=== PATIENT | female | born 1955 | race Caucasian/White ===

== ENCOUNTER 2016-08-12 14:29 | Emergency (ER) | payer OTHER ==
--- NOTE | 2016-08-12 14:58 | ED NURSING NOTES ---
Clinical Report - Nurses [facility] [place] [address] 08/12/2016 14:37 Patient: ELDER GUERRERO TRIAGE Triage time 14:37 Aug 12 2016. Acuity: LEVEL 2. Chief Complaint: ALTERED MENTAL STATUS and (expressive aphasia). 14:41 08/12/16. ( weight deferred until ct completed). --14:41 Winnie Schneider R.N. 14:41 08/12/16. BP: 173/80. HR: 79. RR: 18. O2 saturation: 95%. --14:41 Winnie Schneider R.N. SANG COMA SCORE: Sang Coma Scale: 10- eyes open spontaneously (4); best verbal response- none (1); best motor response- localizes to pain (5). --14:56 Winnie Schneider R.N. Weight: 72.8 kg. Height/Length: 66 inches. BMI: 25.9. --14:37 Winnie Schneider R.N. Medications None. --14:54 Winnie Schneider R.N. Allergies No Known Drug Allergy. --14:54 Winnie Schneider R.N. (old records). --14:41 Winnie Schneider R.N. History Arrived by EMS. This started 36 hours ago. Patient was last known well (36 hours ago). She has had trouble walking. ( has not been able to talk for 36 hours, unable to walk). --14:41 Winnie Schneider R.N. SOCIAL HX: Heavy tobacco smoker (cigarette)- 1 pack per day. Regular alcohol use; consumes two liquor and wine. History of drug use: marijuana. No infectious disease exposure. ABUSE ASSESSMENT: No report of abuse. --14:56 Winnie Schneider R.N. PROBLEMS: no known problems. ADDITIONAL SURGERIES: no known surgeries. Interventions ID band on patient. --14:41 Winnie Schneider R.N. PHYSICAL ASSESSMENT 14:58 08/12/16. To room via stretcher. ( unable to complete nihss, patient unable to follow verbal instructions). GENERAL / NEURO / PSYCH: Alert. Not responding verbally. Patient appears well-nourished. Pupillary exam: Right pupil 4mm. Left pupil: 4mm. RESPIRATORY: Breath sounds within normal limits. CVS: Normal sinus rhythm noted. Cardiac rhythm: normal sinus rhythm. Capillary refill less than 2 seconds. GI / : Abdomen soft and nontender. SKIN: Skin is warm and dry. --14:59 Winnie Schneider R.N. NURSING PROGRESS NOTES 14:41 08/12/16. Finger stick glucose: 116; performed by nurse; result shown to the ED physician. --14:41 Winnie Schneider R.N. 14:42 08/12/2016 Site #1 started via IV in the right antecubital space with an 20g angiocath, with aseptic technique and good blood return; one attempt. Blood drawn: rainbow set. Labeled in the presence of the patient and sent to the lab. Saline lock flushed with 5 mL saline. --14:42 Winnie Schneider R.N. 14:42 08/12/16. Patient transported to CT by stretcher with nurse and tech. --14:42 Winnie Schneider R.N. 14:50 08/12/16. Patient returned from CT by stretcher with nurse. --14:56 Winnie Schneider R.N. 14:52 08/12/16. satellite project site monitor, pulse oximeter and NIBP monitor placed on patient; cardiac monitor technician- Lead II; monitor alarms on. Patient gowned. --14:57 Winnie Schneider R.N. 14:59 08/12/16. BP: 168/71. HR: 48. RR: 16. O2 saturation: 100%. --14:59 Winnie Schneider R.N. EKG time: (1459). EKG was ordered, performed by a tech and shown to the ED physician. --15:02 Renetta Coreas ER Tech1 15:00 08/12/2016 Site #2 started via IV in the left antecubital space with an 20g angiocath, with aseptic technique and good blood return; one attempt. Saline lock flushed with 10 mL saline. --15:06 Winnie Schneider R.N. Cardiac rhythm: sinus bradycardia. ( Patient experiencing intermittent bradycardia with HR dropping into the 30s briefly). --15:10 Winnie Schneider R.N. 15:10 08/12/16. BP: 164/73. HR: 50. RR: 16. --15:10 Winnie Schneider R.N. 15:15 08/12/16. ( brought to room. Patient able to follow some command. Will hold hands out in front of her, no drift, able to stick out tongue without deviation. Right side facial droop observed. Pt is able to move legs against gravity but not lift off bed. Pt remains aphasic. Code status discussed with patients , full code at this time). --15:15 Winnie Schneider R.N. 15:26 08/12/16. Cardiac rhythm: sinus bradycardia. 14 fr ortiz catheter placed. Reason for indwelling catheter: critical need to monitor intake and output, pre-operatively and patient's decreased level of consciousness. During procedure hand hygiene observed and sterile equipment and aseptic technique used. Return of 75 mL yellow-colored clear urine; attached to bedside drainage bag positioned below the bladder and secured with stabilization device. She tolerated procedure well. --15:26 Winnie Schneider R.N. 15:26 08/12/16. BP: 143/80. HR: 50. RR: 14. O2 saturation: 100%. --15:26 Winnie Schneider R.N. ( Discussed admin of decadron and anti seizure prophylaxix with PECAN PICKER, Per neurosurg, holding both for now.). --15:28 Winnie Schneider R.N. 15:31 08/12/16. ( HR variable, from sinus juliet rate 34 to nsr rate of 80.). --15:33 Winnie Schneider R.N. 15:44 08/12/16. Cardiac rhythm: sinus bradycardia. ( GSC 10, no verbal responses, follows commands, weak, aphasia continues.). --15:44 Winnie Schneider R.N. 15:44 08/12/16. BP: 150/54. HR: 37. RR: 16. O2 saturation: 100%. --15:44 Winnie Schneider R.N. EKG time: (3620). EKG was ordered, performed by a tech and shown to the ED physician. --15:47 Renetta Coreas ER Tech1. DISPOSITION / DISCHARGE 16:00 08/12/16. Departure time: 16:Aug 12 2016. Cardiac rhythm: sinus bradycardia. Condition at departure: unchanged and critical. Transferred to [facility]. Summary of care provided to transport team. Transported via helicopter by transport team with monitor and IV. Report was given. Report included patient's care, treatment, medications, reviewed medication reconcilliation, and condition (including any recent changes or anticipated changes). All questions were answered. (flight crew). --16:04 Winnie Schneider R.N. 16:08/12/2016 Site #[address] upon transfer; patent. --16:01 Winnie Schneider R.N. 16:08/12/2016 Site #[address] upon transfer. --16:01 Winnie Schneider R.N. 16:00 08/12/16. BP: 150/55. HR: 40. RR: 16. O2 saturation: 100%. --16:04 Winnie Schneider R.N. Locked/Released at 08/12/2016 16:04 by Winnie Schneider R.N.
--- NOTE | 2016-08-12 14:58 | ED ORDER SUMMARY ---
..... Patient: ELDER GUERRERO OrderSheet [facility] VisitID: [id number] [place] [address] 60y, F Registration Date/Time: 08/12/2016 ORDER SHEET Weight: 72.8 kg Allergies: No Known Drug Allergy GENERAL ORDERS: Server Administrator (Continuous) (14:41 08/12/2016 HBivens A.R.N.P.) (15:16 EInderbitzen R.N.) CT Head wo Cont Urgent (14:41 08/12/2016 HBivens A.R.N.P.) (Ack 14:43 OHernandez) (15:07 EInderbitzen R.N.) CBC w Diff Urgent (14:41 08/12/2016 HBivens A.R.N.P.) (Ack 14:43 OHernandez) (14:57 KWilliams R.N.) BMP Urgent (14:41 08/12/2016 HBivens A.R.N.P.) (Ack 14:43 OHernandez) (14:57 KWilliams R.N.) PT with INR Urgent (14:41 08/12/2016 HBivens A.R.N.P.) (Ack 14:43 OHernandez) (14:57 KWilliams R.N.) PTT Urgent (14:41 08/12/2016 HBivens A.R.N.P.) (Ack 14:43 OHernandez) (14:57 KWilliams R.N.) Oxygen (2 L/min) (NC) (14:41 08/12/2016 HBivens A.R.N.P.) (15:07 EInderbitzen R.N.) EKG - ER Stat (14:56 08/12/2016 HBivens A.R.N.P.) (15:01 LNations ER Tech1) Green Catheter (14:57 08/12/2016 HBivens A.R.N.P.) (15:07 EInderbitzen R.N.) MEDICATION ORDERS: IV FLUIDS: IV Saline Lock (14:41 08/12/2016 HBivens A.R.N.P.) (14:57 Getachew R.N.) IV Saline Lock (14:57 08/12/2016 Dimitry A.R.N.PSoha) (15:06 Daljit Jaramillo) ORDER SHEET NOTES: [Electronically signed by Winnie Schneider R.N. (16:04 08/12/2016)] [Electronically signed by Stefania ArevaloNSohaPSoha (19:20 08/12/2016)] [Electronically locked/signed by Winnie Schneider R.N. (16:04 08/12/2016)]
--- NOTE | 2016-08-12 14:58 | ED NURSING NOTES ---
Clinical Report - Nurses [facility] [place] [address] 08/12/2016 14:37 Patient: ELDER GUERRERO TRIAGE Triage time 14:37 Aug 12 2016. Acuity: LEVEL 2. Chief Complaint: ALTERED MENTAL STATUS and (expressive aphasia). 14:41 08/12/16. ( weight deferred until ct completed). --14:41 Winnie Schneider R.N. 14:41 08/12/16. BP: 173/80. HR: 79. RR: 18. O2 saturation: 95%. --14:41 Winnie Schneider R.N. SANG COMA SCORE: Sang Coma Scale: 10- eyes open spontaneously (4); best verbal response- none (1); best motor response- localizes to pain (5). --14:56 Winnie Schneider R.N. Weight: 72.8 kg. Height/Length: 66 inches. BMI: 25.9. --14:37 Winnie Schneider R.N. Medications None. --14:54 Winnie Schneider R.N. Allergies No Known Drug Allergy. --14:54 Winnie Schneider R.N. (old records). --14:41 Winnie Schneider R.N. History Arrived by EMS. This started 36 hours ago. Patient was last known well (36 hours ago). She has had trouble walking. ( has not been able to talk for 36 hours, unable to walk). --14:41 Winnie Schneider R.N. SOCIAL HX: Heavy tobacco smoker (cigarette)- 1 pack per day. Regular alcohol use; consumes two liquor and wine. History of drug use: marijuana. No infectious disease exposure. ABUSE ASSESSMENT: No report of abuse. --14:56 Winnie Schneider R.N. PROBLEMS: no known problems. ADDITIONAL SURGERIES: no known surgeries. Interventions ID band on patient. --14:41 Winnie Schneider R.N. PHYSICAL ASSESSMENT 14:58 08/12/16. To room via stretcher. ( unable to complete nihss, patient unable to follow verbal instructions). GENERAL / NEURO / PSYCH: Alert. Not responding verbally. Patient appears well-nourished. Pupillary exam: Right pupil 4mm. Left pupil: 4mm. RESPIRATORY: Breath sounds within normal limits. CVS: Normal sinus rhythm noted. Cardiac rhythm: normal sinus rhythm. Capillary refill less than 2 seconds. GI / : Abdomen soft and nontender. SKIN: Skin is warm and dry. --14:59 Winnie Schneider R.N. NURSING PROGRESS NOTES 14:41 08/12/16. Finger stick glucose: 116; performed by nurse; result shown to the ED physician. --14:41 Winnie Schneider R.N. 14:42 08/12/2016 Site #1 started via IV in the right antecubital space with an 20g angiocath, with aseptic technique and good blood return; one attempt. Blood drawn: rainbow set. Labeled in the presence of the patient and sent to the lab. Saline lock flushed with 5 mL saline. --14:42 Winnie Schneider R.N. 14:42 08/12/16. Patient transported to CT by stretcher with nurse and tech. --14:42 Winnie Schneider R.N. 14:50 08/12/16. Patient returned from CT by stretcher with nurse. --14:56 Winnie Schneider R.N. 14:52 08/12/16. youth nutritional monitor, pulse oximeter and NIBP monitor placed on patient; laboratory monitor- Lead II; monitor alarms on. Patient gowned. --14:57 Winnie Schneider R.N. 14:59 08/12/16. BP: 168/71. HR: 48. RR: 16. O2 saturation: 100%. --14:59 Winnie Schneider R.N. EKG time: (1459). EKG was ordered, performed by a tech and shown to the ED physician. --15:02 Renetta Coreas ER Tech1 15:00 08/12/2016 Site #2 started via IV in the left antecubital space with an 20g angiocath, with aseptic technique and good blood return; one attempt. Saline lock flushed with 10 mL saline. --15:06 Winnie Schneider R.N. Cardiac rhythm: sinus bradycardia. ( Patient experiencing intermittent bradycardia with HR dropping into the 30s briefly). --15:10 Winnie Schneider R.N. 15:10 08/12/16. BP: 164/73. HR: 50. RR: 16. --15:10 Winnie Schneider R.N. 15:15 08/12/16. ( brought to room. Patient able to follow some command. Will hold hands out in front of her, no drift, able to stick out tongue without deviation. Right side facial droop observed. Pt is able to move legs against gravity but not lift off bed. Pt remains aphasic. Code status discussed with patients , full code at this time). --15:15 Winnie Schneider R.N. 15:26 08/12/16. Cardiac rhythm: sinus bradycardia. 14 fr ortiz catheter placed. Reason for indwelling catheter: critical need to monitor intake and output, pre-operatively and patient's decreased level of consciousness. During procedure hand hygiene observed and sterile equipment and aseptic technique used. Return of 75 mL yellow-colored clear urine; attached to bedside drainage bag positioned below the bladder and secured with stabilization device. She tolerated procedure well. --15:26 Winnie Schneider R.N. 15:26 08/12/16. BP: 143/80. HR: 50. RR: 14. O2 saturation: 100%. --15:26 Winnie Schneider R.N. ( Discussed admin of decadron and anti seizure prophylaxix with PAPER STEAMER, Per neurosurg, holding both for now.). --15:28 Winnie Schneider R.N. 15:31 08/12/16. ( HR variable, from sinus juliet rate 34 to nsr rate of 80.). --15:33 Winnie Schneider R.N. 15:44 08/12/16. Cardiac rhythm: sinus bradycardia. ( GSC 10, no verbal responses, follows commands, weak, aphasia continues.). --15:44 Winnie Schneider R.N. 15:44 08/12/16. BP: 150/54. HR: 37. RR: 16. O2 saturation: 100%. --15:44 Winnie Schneider R.N. EKG time: (1912). EKG was ordered, performed by a tech and shown to the ED physician. --15:47 Renetta Coreas ER Tech1. DISPOSITION / DISCHARGE 16:00 08/12/16. Departure time: 16:Aug 12 2016. Cardiac rhythm: sinus bradycardia. Condition at departure: unchanged and critical. Transferred to [facility]. Summary of care provided to transport team. Transported via helicopter by transport team with monitor and IV. Report was given. Report included patient's care, treatment, medications, reviewed medication reconcilliation, and condition (including any recent changes or anticipated changes). All questions were answered. (flight crew). --16:04 Winnie Schneider R.N. 16:08/12/2016 Site #[address] upon transfer; patent. --16:01 Winnie Schneider R.N. 16:08/12/2016 Site #[address] upon transfer. --16:01 Winnie Schneider R.N. 16:00 08/12/16. BP: 150/55. HR: 40. RR: 16. O2 saturation: 100%. --16:04 Winnie Schneider R.N. Locked/Released at 08/12/2016 16:04 by Winnie Schneider R.N.
--- NOTE | 2016-08-12 14:58 | ED CLINICAL REPORT ---
Clinical Report - Physicians/Mid Levels [facility] [address] [place] [address] 08/12/2016 14:37 Patient: ELDER GUERRERO Time Seen: 14:35; upon arrival, initial patient contact, initial documentation, patient care assumed. Arrived- By ambulance. Historian- patient. History unobtainable due to patient's altered mental status. HISTORY OF PRESENT ILLNESS Chief Complaint: WEAKNESS and IMPAIRED SPEECH. The patient has had weakness. No numbness. She has had difficulty with speech (won't talk). She has had severe difficulty walking. It has been associated with weakness in both legs. No history of incontinence, affect changes, dizziness, recent trauma or headaches. No history of coordination problems. The patient has not had a shuffling gait. This started about 2 - 3 days ago and is still present. At its maximum deficit described as severe. When seen in the E.D., described as severe. No dizziness, altered mental status, seizure or blackouts. Usually is alert and oriented X3 and has normal mobility. Similar symptoms previously: None. Recent medical care: Not recently seen/assessed. REVIEW OF SYSTEMS No fever, head injury, chest pain or difficulty breathing. She has had vomiting. The vomiting has occurred several times. No bilious emesis, feculent emesis, blood-tinged emesis, coffee-grounds emesis or frankly bloody emesis. No unusually dark emesis. All systems otherwise negative, except as recorded above. PAST HISTORY Negative. SOCIAL HISTORY Light tobacco smoker. Regular alcohol use; consumes beer. History of occasional drug use: marijuana. No recent travel. Is a local resident. She lives with spouse. FAMILY HISTORY Negative. ADDITIONAL NOTES The nursing notes have been reviewed with agreement regarding the chief complaint, HPI, ROS, PMH and patient medications and allergies. PHYSICAL EXAM Vital Signs: 08/12/2016 14:41 BP: 173/80. HR: 79. RR: 18. O2 saturation: 95%. Have been reviewed as normal and appear to be correct. Appearance: Alert. No acute distress. Head: Head atraumatic. Eyes: Pupils equal, round and reactive to light. ENT: Normal ENT inspection. Airway intact. Pharynx normal. Neck: Normal inspection. Neck supple. CVS: Normal heart rate and rhythm. Heart sounds normal. Pulses normal. Respiratory: No respiratory distress. Breath sounds normal. Abdomen: Soft and nontender. No organomegaly. Back: Normal inspection. Skin: Skin warm and dry. Normal skin color. No rash. Normal skin turgor. Extremities: Extremities do not exhibit normal ROM. No lower extremity edema. (unable to active move extremities in certain directions when asked, when asking to push down with her feet, she pulls them up, tell her too push harder, she pulls harder, hand admitting officer on L side weaker than R). Neuro: Alert. Disoriented. Not disoriented. Alertness is not decreased. Abnormal verbal response (no verbalization) (pt unable to talk). Response to pain is not abnormal. Abnormal mood/affect or speech. No dysphasia or dysarthria. Cranial nerves normal (as tested). Cerebellar findings present. Finger-nose test abnormal (can't do finger to nose, and can't walk). No motor deficit. No sensory deficit. LABS, X-RAYS, AND EKG EKG: EKG time: (1459). No acute process. No acute ischemia. Bradycardia (54). The study has been interpreted contemporaneously by me. The EKG appears to be a good tracing. Interpretation time: 1500. CT Head: . (IMPRESSION: 1. There is a large 6.5 x 3.5 x 4.5 cm left frontal lobe intraparenchymal hemorrhages moderate mass effect and mild subfalcine midline shift. 2. Findings called to the emergency department for VICKIE Guzman ([address] scans at this facility use dose modulation, iterative reconstruction, and/or weight-based dosing when appropriate to reduce radiation dose to as low as reasonably achievable. Electronically Final signed by:Jesus Alberto Bustillo MD 08/12/2016 3:04:13 PM Technologist: DANNIE). The study was interpreted by the radiologist. Laboratory Tests: CBC w Diff: (DARELL: 08/12/2016 14:40) ( MsgRcvd 08/12/2016 15:09) Final results Test Result Flag Units (Reference) WHITE BLOOD COUNT 21.9 H K/uL (4.5-11.5) RED BLOOD COUNT 4.76 M/uL (4.00-5.20) HEMOGLOBIN 16.4 H gm/dL (12.0-16.0) HEMATOCRIT 49.1 H % (36.0-46.0) MEAN CELL VOLUME 103 H fL (80-100) MEAN CORPUSCULAR HGB 34 pg (26-34) MEAN CORPUSCULAR HGB CONC 33 g/dL (31-37) RED CELL DISTRIBUTION WIDTH 13.2 % (11.6-14.8) PLATELET COUNT 233 K/uL (150-400) NEUTROPHIL % 85.3 H % (50-75) LYMPH % 11.3 L % (25-40) MONO % 2.9 L % (3-14) EOSINOPHIL % 0 % (0-4) BASOPHIL % 0.5 % (0-2) PT with INR: (DARELL: 08/12/2016 14:40) ( MsgRcvd 08/12/2016 15:07) Final results Test Result Flag Units (Reference) INR 0.9 (0.8-1.2) Low Intensity Therapy: INR 1.5-2.0 PT range 18.5-23.1Mod.Intensity Therapy: INR 2.0-3.0 PT range 23.1-31.5High Intensity Therapy: INR 2.5-3.5 PT range 27.4-35.5High Intensity Therapy 2: INR 3.0-4.0 PT range 31.5-39.3 APTT 32 SECONDS (24-34) BMP: (DARELL: 08/12/2016 14:40) ( MsgRcvd 08/12/2016 15:16) Final results Test Result Flag Units (Reference) GLUCOSE 138 H mg/dL (70-110) BUN 16 mg/dL (7-18) CREATININE 0.7 mg/dL (0.6-1.3) Estimated GFR >60 mL/min Estimated GFR- >60 mL/min Note: Persistent reduction over 3 months in eGFR<60 mL/min/1.73 m2 defines CKD. Patients with eGFR values>=60 mL/min/1.73 m2 may also have CKD if evidence ofpersistent proteinuria. Additional information may be foundat www.kidney.org. SODIUM 142 mmol/L (136-145) POTASSIUM 3.7 mmol/L (3.5-5.1) CHLORIDE 101 mmol/L (98-107) CARBON DIOXIDE 32 mmol/L (21-32) CALCIUM 9.7 mg/dL (8.5-10.1) . PROGRESS AND PROCEDURES Course of Care: 1455. spouse updated with ct results and need for transfer 1503. speaking to nursing customer facilities supervisor at [facility] re transfer report given to DR. Anderson, Neurologist is whom accepting pt, tx options discussed, he wanted Labetolol, but I told him I wasn't comfortable giving it with her heart rate changes 15:14 08/12/16. asking mower sharpener to call air transport 1518. spouse again updated pt maintaining airway, resp even and unlabored 1522. ortiz being placed, PERRLA, fundal exam normal, vitals still stable 15:26 08/12/16. Spoke to Yolis again at [facility], [employer] on their way, and ct films have been received 15:27 08/12/16. transfer form completed 15:42 08/12/16. BP 150/54 HR 34, PO100% 1555. airlift team here, assisting getting pt to stretcher security called to stop traffic for them to cross street. 08/12/2016 15:10 BP: 164/73. HR: 50. RR: 16. Vital Signs: have been reviewed as abnormal and appear to be correct. Hypertensive. Bradycardic. Respiratory rate normal. Temperature normal. Oxygen saturation normal. Critical care performed (60 minutes). Time includes: direct patient care, patient reassessment, coordination of patient care, interpretation of data (laboratory data), review of patient's medical records, medical consultation and documentation of patient care- see progress notes. Discussed case with on-call health care provider, (call returned 1505 Dr Anderson). Reviewed test results. Agreed upon treatment plan. Differential Diagnosis: I considered ischemic stroke, subdural hematoma, subarachnoid hemorrhage, aneurysm, brain abscess, brain tumor, toxic etiology, hypoglycemia and hyperglycemia as a possible cause of weakness in this patient. This is a partial list of diagnoses considered. Above considerations are based on history, physical exam, EKG and other information. Differential diagnosis was discussed with patient and patient's spouse. Disposition: Benefits, risks and alternatives to transfer explained to family. Transferred to [facility]. 15:12. CLINICAL IMPRESSION Nontraumatic subarachnoid hemorrhage involving the left intracranial vessels. (frontal lobe). (Electronically signed by Stefania Arevalo A.R.N.P. 08/12/2016 19:20)
--- NOTE | 2016-08-12 14:58 | ED ORDER SUMMARY ---
..... Patient: ELDER GUERRERO OrderSheet [facility] VisitID: [id number] [place] [address] 60y, F Registration Date/Time: 08/12/2016 ORDER SHEET Weight: 72.8 kg Allergies: No Known Drug Allergy GENERAL ORDERS: Fixer Boarding Room (Continuous) (14:41 08/12/2016 HBivens A.R.N.P.) (15:16 EInderbitzen R.N.) CT Head wo Cont Urgent (14:41 08/12/2016 HBivens A.R.N.P.) (Ack 14:43 OHernandez) (15:07 EInderbitzen R.N.) CBC w Diff Urgent (14:41 08/12/2016 HBivens A.R.N.P.) (Ack 14:43 OHernandez) (14:57 KWilliams R.N.) BMP Urgent (14:41 08/12/2016 HBivens A.R.N.P.) (Ack 14:43 OHernandez) (14:57 KWilliams R.N.) PT with INR Urgent (14:41 08/12/2016 HBivens A.R.N.P.) (Ack 14:43 OHernandez) (14:57 KWilliams R.N.) PTT Urgent (14:41 08/12/2016 HBivens A.R.N.P.) (Ack 14:43 OHernandez) (14:57 KWilliams R.N.) Oxygen (2 L/min) (NC) (14:41 08/12/2016 HBivens A.R.N.P.) (15:07 EInderbitzen R.N.) EKG - ER Stat (14:56 08/12/2016 HBivens A.R.N.P.) (15:01 LNations ER Tech1) Green Catheter (14:57 08/12/2016 HBivens A.R.N.P.) (15:07 EInderbitzen R.N.) MEDICATION ORDERS: IV FLUIDS: IV Saline Lock (14:41 08/12/2016 HBivens A.R.N.P.) (14:57 Getachew R.N.) IV Saline Lock (14:57 08/12/2016 Dimitry A.R.N.PSoha) (15:06 Daljit Jaramillo) ORDER SHEET NOTES: [Electronically signed by Winnie Schneider R.N. (16:04 08/12/2016)] [Electronically signed by Stefania ArevaloNSohaPSoha (19:20 08/12/2016)] [Electronically locked/signed by Winnie Schneider R.N. (16:04 08/12/2016)]
--- NOTE | 2016-08-12 14:58 | ED CLINICAL REPORT ---
Clinical Report - Physicians/Mid Levels [facility] [address] [place] [address] 08/12/2016 14:37 Patient: ELDER GUERRERO Time Seen: 14:35; upon arrival, initial patient contact, initial documentation, patient care assumed. Arrived- By ambulance. Historian- patient. History unobtainable due to patient's altered mental status. HISTORY OF PRESENT ILLNESS Chief Complaint: WEAKNESS and IMPAIRED SPEECH. The patient has had weakness. No numbness. She has had difficulty with speech (won't talk). She has had severe difficulty walking. It has been associated with weakness in both legs. No history of incontinence, affect changes, dizziness, recent trauma or headaches. No history of coordination problems. The patient has not had a shuffling gait. This started about 2 - 3 days ago and is still present. At its maximum deficit described as severe. When seen in the E.D., described as severe. No dizziness, altered mental status, seizure or blackouts. Usually is alert and oriented X3 and has normal mobility. Similar symptoms previously: None. Recent medical care: Not recently seen/assessed. REVIEW OF SYSTEMS No fever, head injury, chest pain or difficulty breathing. She has had vomiting. The vomiting has occurred several times. No bilious emesis, feculent emesis, blood-tinged emesis, coffee-grounds emesis or frankly bloody emesis. No unusually dark emesis. All systems otherwise negative, except as recorded above. PAST HISTORY Negative. SOCIAL HISTORY Light tobacco smoker. Regular alcohol use; consumes beer. History of occasional drug use: marijuana. No recent travel. Is a local resident. She lives with spouse. FAMILY HISTORY Negative. ADDITIONAL NOTES The nursing notes have been reviewed with agreement regarding the chief complaint, HPI, ROS, PMH and patient medications and allergies. PHYSICAL EXAM Vital Signs: 08/12/2016 14:41 BP: 173/80. HR: 79. RR: 18. O2 saturation: 95%. Have been reviewed as normal and appear to be correct. Appearance: Alert. No acute distress. Head: Head atraumatic. Eyes: Pupils equal, round and reactive to light. ENT: Normal ENT inspection. Airway intact. Pharynx normal. Neck: Normal inspection. Neck supple. CVS: Normal heart rate and rhythm. Heart sounds normal. Pulses normal. Respiratory: No respiratory distress. Breath sounds normal. Abdomen: Soft and nontender. No organomegaly. Back: Normal inspection. Skin: Skin warm and dry. Normal skin color. No rash. Normal skin turgor. Extremities: Extremities do not exhibit normal ROM. No lower extremity edema. (unable to active move extremities in certain directions when asked, when asking to push down with her feet, she pulls them up, tell her too push harder, she pulls harder, hand nursing program coordinator on L side weaker than R). Neuro: Alert. Disoriented. Not disoriented. Alertness is not decreased. Abnormal verbal response (no verbalization) (pt unable to talk). Response to pain is not abnormal. Abnormal mood/affect or speech. No dysphasia or dysarthria. Cranial nerves normal (as tested). Cerebellar findings present. Finger-nose test abnormal (can't do finger to nose, and can't walk). No motor deficit. No sensory deficit. LABS, X-RAYS, AND EKG EKG: EKG time: (1459). No acute process. No acute ischemia. Bradycardia (54). The study has been interpreted contemporaneously by me. The EKG appears to be a good tracing. Interpretation time: 1500. CT Head: . (IMPRESSION: 1. There is a large 6.5 x 3.5 x 4.5 cm left frontal lobe intraparenchymal hemorrhages moderate mass effect and mild subfalcine midline shift. 2. Findings called to the emergency department for VICKIE Guzman ([address] All [address] scans at this facility use dose modulation, iterative reconstruction, and/or weight-based dosing when appropriate to reduce radiation dose to as low as reasonably achievable. Electronically Final signed by:Jesus Alberto Bustillo MD 08/12/2016 3:04:13 PM Technologist: DANNIE). The study was interpreted by the radiologist. Laboratory Tests: CBC w Diff: (DARELL: 08/12/2016 14:40) ( MsgRcvd 08/12/2016 15:09) Final results Test Result Flag Units (Reference) WHITE BLOOD COUNT 21.9 H K/uL (4.5-11.5) RED BLOOD COUNT 4.76 M/uL (4.00-5.20) HEMOGLOBIN 16.4 H gm/dL (12.0-16.0) HEMATOCRIT 49.1 H % (36.0-46.0) MEAN CELL VOLUME 103 H fL (80-100) MEAN CORPUSCULAR HGB 34 pg (26-34) MEAN CORPUSCULAR HGB CONC 33 g/dL (31-37) RED CELL DISTRIBUTION WIDTH 13.2 % (11.6-14.8) PLATELET COUNT 233 K/uL (150-400) NEUTROPHIL % 85.3 H % (50-75) LYMPH % 11.3 L % (25-40) MONO % 2.9 L % (3-14) EOSINOPHIL % 0 % (0-4) BASOPHIL % 0.5 % (0-2) PT with INR: (DARELL: 08/12/2016 14:40) ( MsgRcvd 08/12/2016 15:07) Final results Test Result Flag Units (Reference) INR 0.9 (0.8-1.2) Low Intensity Therapy: INR 1.5-2.0 PT range 18.5-23.1Mod.Intensity Therapy: INR 2.0-3.0 PT range 23.1-31.5High Intensity Therapy: INR 2.5-3.5 PT range 27.4-35.5High Intensity Therapy 2: INR 3.0-4.0 PT range 31.5-39.3 APTT 32 SECONDS (24-34) BMP: (DARELL: 08/12/2016 14:40) ( MsgRcvd 08/12/2016 15:16) Final results Test Result Flag Units (Reference) GLUCOSE 138 H mg/dL (70-110) BUN 16 mg/dL (7-18) CREATININE 0.7 mg/dL (0.6-1.3) Estimated GFR >60 mL/min Estimated GFR- >60 mL/min Note: Persistent reduction over 3 months in eGFR<60 mL/min/1.73 m2 defines CKD. Patients with eGFR values>=60 mL/min/1.73 m2 may also have CKD if evidence ofpersistent proteinuria. Additional information may be foundat www.[email or web address].org. SODIUM 142 mmol/L (136-145) POTASSIUM 3.7 mmol/L (3.5-5.1) CHLORIDE 101 mmol/L (98-107) CARBON DIOXIDE 32 mmol/L (21-32) CALCIUM 9.7 mg/dL (8.5-10.1) . PROGRESS AND PROCEDURES Course of Care: 1455. spouse updated with ct results and need for transfer 1503. speaking to nursing supervisor game farm at [facility] re transfer report given to DR. Anderson, Neurologist is whom accepting pt, tx options discussed, he wanted Labetolol, but I told him I wasn't comfortable giving it with her heart rate changes 15:14 08/12/16. asking general farmer to call air transport 1518. spouse again updated pt maintaining airway, resp even and unlabored 1522. ortiz being placed, PERRLA, fundal exam normal, vitals still stable 15:26 08/12/16. Spoke to Yolis again at [facility], [id number], and ct films have been received 15:27 08/12/16. transfer form completed 15:42 08/12/16. BP 150/54 HR 34, PO100% 1555. airlift team here, assisting getting pt to stretcher security called to stop traffic for them to cross street. 08/12/2016 15:10 BP: 164/73. HR: 50. RR: 16. Vital Signs: have been reviewed as abnormal and appear to be correct. Hypertensive. Bradycardic. Respiratory rate normal. Temperature normal. Oxygen saturation normal. Critical care performed (60 minutes). Time includes: direct patient care, patient reassessment, coordination of patient care, interpretation of data (laboratory data), review of patient's medical records, medical consultation and documentation of patient care- see progress notes. Discussed case with on-call health care provider, (call returned 1505 Dr Anderson). Reviewed test results. Agreed upon treatment plan. Differential Diagnosis: I considered ischemic stroke, subdural hematoma, subarachnoid hemorrhage, aneurysm, brain abscess, brain tumor, toxic etiology, hypoglycemia and hyperglycemia as a possible cause of weakness in this patient. This is a partial list of diagnoses considered. Above considerations are based on history, physical exam, EKG and other information. Differential diagnosis was discussed with patient and patient's spouse. Disposition: Benefits, risks and alternatives to transfer explained to family. Transferred to [facility]. 15:12. CLINICAL IMPRESSION Nontraumatic subarachnoid hemorrhage involving the left intracranial vessels. (frontal lobe). (Electronically signed by Stefania Arevalo A.R.N.P. 08/12/2016 19:20)
--- NOTE | 2016-08-12 15:07 | DIAGNOSTIC IMAGING REPORT ---
PROCEDURE: CT HEAD WITHOUT CONTRAST INDICATION: WEAKNESS TECHNIQUE: Noncontrast axial images with sagittal and coronal reformations. COMPARISON: None. FINDINGS: There is a large 6.5 x 3.5 x 4.5 cm left frontal lobe intraparenchymal hemorrhage with moderate mass effect and subfalcine midline shift (4 mm). There is no evidence of intraventricular or subarachnoid hemorrhage and no evidence of hydrocephalous. Sinuses and mastoids are normal. There are 10 mm exostoses of the left and right occipital bones (incidental findings) Cavernous carotid vascular calcifications IMPRESSION: 1. There is a large 6.5 x 3.5 x 4.5 cm left frontal lobe intraparenchymal hemorrhages moderate mass effect and mild subfalcine midline shift. 2. Findings called to the emergency department for VICKIE Guzman ([address] All [address] scans at this facility use dose modulation, iterative reconstruction, and/or weight-based dosing when appropriate to reduce radiation dose to as low as reasonably achievable.
--- NOTE | 2016-08-12 19:20 | ED DISCHARGE INSTRUCTIONS ---
Patient: ELDER GUERRERO General Instructions [facility] VisitID: [id number] [address] [place] [address] 60y, F Registration Date/Time: 08/12/2016 Nontraumatic subarachnoid hemorrhage involving the left intracranial vessels. (frontal lobe). (Electronically signed by Stefania Arevalo A.R.N.P. 08/12/2016 19:20)
--- NOTE | 2016-08-12 19:20 | ED MED RECONCILIATION SUMMARY ---
Patient: ELDER GUERRERO Medication Reconciliation Report [facility] VisitID: [id number] [address] [place] [address] 60y, F Registration Date/Time: 08/12/2016 Weight: 72.8 kg Height/Length: 66 in. BMI: 25.9 ALLERGIES: No Known Drug Allergy The patient's Home Medications are listed below: NONE. The source(s) of the original Home Medication information: old records The following Medications were given to the patient in the Emergency Department: None. The following Medications were prescribed to the patient: None.
--- NOTE | 2016-08-12 19:20 | ED MAR SUMMARY ---
..... Medication Administration Record [facility] [address] [place] [address] Patient: ELDER GUERRERO Visit ID: [id number] 60y, F Weight: 72.8 kg Height/Length: 66 in BMI: 25.9 ALLERGIES: No Known Drug Allergy
--- NOTE | 2016-08-12 19:20 | ED DISCHARGE INSTRUCTIONS ---
Patient: ELDER GUERRERO General Instructions [facility] VisitID: [id number] [address] [place] [address] 60y, F Registration Date/Time: 08/12/2016 Nontraumatic subarachnoid hemorrhage involving the left intracranial vessels. (frontal lobe). (Electronically signed by Stefania Arevalo A.R.N.P. 08/12/2016 19:20)
--- NOTE | 2016-08-12 19:20 | ED MAR SUMMARY ---
..... Medication Administration Record [facility] [address] [place] [address] Patient: ELDER GUERRERO Visit ID: [id number] 60y, F Weight: 72.8 kg Height/Length: 66 in BMI: 25.9 ALLERGIES: No Known Drug Allergy
--- NOTE | 2016-08-12 19:20 | ED MED RECONCILIATION SUMMARY ---
Patient: ELDER GUERRERO Medication Reconciliation Report [facility] VisitID: [id number] [address] [place] [address] 60y, F Registration Date/Time: 08/12/2016 Weight: 72.8 kg Height/Length: 66 in. BMI: 25.9 ALLERGIES: No Known Drug Allergy The patient's Home Medications are listed below: NONE. The source(s) of the original Home Medication information: old records The following Medications were given to the patient in the Emergency Department: None. The following Medications were prescribed to the patient: None.
== END 2016-08-12 16:00 | disposition short-term general hospital (02) ==
LOC: ED SRH 14:29
DX: I60.9 Nontraumatic subarachnoid hemorrhage, unspecified (principal); F17.210 Nicotine dependence, cigarettes, uncomplicated
CPT/HCPCS: 83475; 90047; 94001; 94060; 95059

== ENCOUNTER 2016-10-23 13:06 | Outpatient (CLI) | payer OTHER ==
--- NOTE | 2016-10-23 13:41 | DIAGNOSTIC IMAGING REPORT ---
PROCEDURE: CT HEAD WITHOUT CONTRAST INDICATION: HEMORRHAGIC CEREBROVASCULAR INFARCTION TECHNIQUE: Axial CT images were acquired through the head. Coronal and sagittal reformations were created. COMPARISON: Head CT dated 08/12/16 FINDINGS: Evolving left frontal hematoma with a decrease in mass effect and displacement of the ventricles. Ventricles are not normal. Again there is periventricular small-vessel ischemic disease in the white matter. IMPRESSION: 1. Evolving left frontal hematoma with decrease in mass effect. All CT scans at this facility use dose modulation, iterative reconstruction, and/or weight-based dosing when appropriate to reduce radiation dose to as low as reasonably achievable.
== END 2016-10-23 23:00 ==
LOC: CT SRH 13:06
DX: I61.9 Nontraumatic intracerebral hemorrhage, unspecified (principal)